=== PATIENT | male | born 1990 | race Caucasian/White ===

== ENCOUNTER 2020-02-26 20:49 | Emergency (ER) | payer SELFPAY ==
[~2020-02-26] VITALS: Ht 170.2 cm; Wt 77.1 kg
[2020-02-26 20:54] VITALS: Ht 170.2 cm; Wt 77.1 kg
[2020-02-26 22:11] LABS: BASOPHIL % 0.8 % (0-2); PLATELET COUNT 310 x10^3mcL (130-400); RED CELL DISTRIBUTION WIDTH 12.8 % (11.5-14.5)
[2020-02-26 22:20] LABS: CALCIUM 8.9 mg/dL (8.5-10.1); CARBON DIOXIDE 32.4 mmol/L (21-32); CREATININE SERUM 1.8 mg/dL (0.7-1.3); POTASSIUM SERUM 3.4 mmol/L (3.5-5.1)
[2020-02-26 22:25] LABS: BILIRUBIN TOTAL 0.6 mg/dL (0.20-1.00); TOTAL PROTEIN, SERUM 8.1 g/dL (6.4-8.2)
[2020-02-26 22:26] LABS: ALBUMIN 3.1 g/dL (3.4-5.0)
[2020-02-27 03:31] VITALS: BP 141/99
== END 2020-02-27 03:31 | disposition short-term general hospital (02) ==
LOC: ED 20:49
PROVIDERS: Emergency Medicine
DX: C71.9 Malignant neoplasm of brain, unspecified (principal); G82.20 Paraplegia, unspecified; J18.1 Lobar pneumonia, unspecified organism
CPT/HCPCS: 36600; 87804; J0456; J2150; J2405; J2543; J7050; Q0092